=== PATIENT | male | born 1945 | race Caucasian/White ===

== ENCOUNTER → 2020-02-27 | Outpatient (CLI) | payer OTHER | LOC: SJCVC 15:57 | PROVIDERS: ATTEND Internal Medicine | DX: R94.31 Abnormal electrocardiogram [ECG] [EKG] (principal); I45.2 Bifascicular block; E78.5 Hyperlipidemia, unspecified; E03.8 Other specified hypothyroidism; F41.9 Anxiety disorder, unspecified; E66.9 Obesity, unspecified; Z68.30 Body mass index [BMI] 30.0-30.9, adult; Z90.49 Acquired absence of other specified parts of digestive tract; Z79.899 Other long term (current) drug therapy ==

== ENCOUNTER → 2020-03-10 | Outpatient (CLI) | payer OTHER | LOC: SJCVCIMAG 07:30 | PROVIDERS: ATTEND Internal Medicine | DX: I45.10 Unspecified right bundle-branch block (principal); R00.0 Tachycardia, unspecified; E78.5 Hyperlipidemia, unspecified; R53.83 Other fatigue ==

== ENCOUNTER → 2020-03-19 | Outpatient (CLI) | payer OTHER | LOC: SJCVCIMAG 08:16 | PROVIDERS: ATTEND Internal Medicine | DX: I08.3 Combined rheumatic disorders of mitral, aortic and tricuspid valves (principal); I27.20 Pulmonary hypertension, unspecified; E78.5 Hyperlipidemia, unspecified; Z79.899 Other long term (current) drug therapy ==

== ENCOUNTER → 2020-04-24 | Outpatient (CLI) | payer OTHER | LOC: SJCVC 09:31 | PROVIDERS: ATTEND Internal Medicine | DX: R06.09 Other forms of dyspnea (principal); R00.2 Palpitations; R21 Rash and other nonspecific skin eruption; E78.00 Pure hypercholesterolemia, unspecified; E03.9 Hypothyroidism, unspecified; Z79.899 Other long term (current) drug therapy ==